=== PATIENT | male | born 1965 | race Caucasian/White ===

== ENCOUNTER 2018-08-10 01:19 | Emergency (ER) | payer BC ==
[2018-08-10] MEDS ORDERED: KETOROLAC TROMETHAMINE 60 MG/2 ML VIAL IM ONE (01:22)
[2018-08-10 01:31] VITALS: TEMP 98.2; BMI 26.6
--- NOTE | 2018-08-10 02:07 | PDOC ---
History of Present Illness - General Chief Complaint: Injury Stated Complaint: FELL INJURING LEFT RIBS ON BATHTUB Time Seen by Provider: 08/10/18 01:21 History Source: Patient Exam Limitations: No Limitations - History of Present Illness Initial Comments: 08/10/18 03:31 fall onto left side Occurred: reports: just prior to arrival Severity: reports: moderate Pain Location: reports: chest Method of Injury: Yes: fall Modifying Factors: improves with: None Loss of Consciousness: no loss of consciousness Associated Symptoms (Fall): abdominal pain, chest pain Past History - Past Medical History Allergies/Adverse Reactions: Allergies Allergy/AdvReac Type Severity Reaction Status Date / Time No Known Drug Allergies Allergy Verified 08/10/18 01:21 Home Medications: Ambulatory Orders Gabapentin 800 mg PO TID 08/23/17 Omeprazole 10 mg PO DAILY #30 capsule. 08/23/17 Naproxen 500 mg PO BID PRN #16 tablet. 08/10/18 Oxycodone HCl/Acetaminophen [Percocet 5-325 mg Tablet] 2 tab PO Q6H PRN #16 tablet MDD 8 tabs 08/10/18 Anemia: No Asthma: No Cancer: No Cardiac Disorders: No CVA: No COPD: No CHF: No Dementia: No Diabetes: No GI Disorders: No Disorders: No HTN: Yes Hypercholesterolemia: No Liver Disease: No Seizures: No Thyroid Disease: No - Surgical History Abdominal Surgery: No Appendectomy: No Cardiac Surgery: No Cholecystectomy: No Lung Surgery: No Neurologic Surgery: No Orthopedic Surgery: Yes (LUMBAR FUSION complicated by staph infection many) - Immunization History Immunization Up to Date: No - Suicide/Smoking/Psychosocial Hx Smoking Status: No Smoking History: Never smoked Have you smoked in the past 12 months: No Number of Cigarettes Smoked Daily: 0 Hx Alcohol Use: Yes Drug/Substance Use Hx: No Substance Use Type: Alcohol Hx Substance Use Treatment: No Review of Systems - Review of Systems All Other Systems: Reviewed and Negative *Physical Exam - Physical Exam General Appearance: Yes: Nourished, Appropriately Dressed HEENT: positive: Normal Voice Neck: negative: Tender Respiratory/Chest: positive: Chest Tender, Lungs Clear, Normal Breath Sounds. negative: Respiratory Distress, Decreased Breath Sounds Cardiovascular: positive: Regular Rhythm Gastrointestinal/Abdominal: negative: Tender, Distended Lymphatic: negative: Adenopathy Extremity: positive: Normal Capillary Refill Integumentary: positive: Normal Color Neurologic: positive: director erp II-XII NML intact, Fully Oriented, Motor Strength 5/5 Medical Decision Making - Medical Decision Making 08/10/18 03:33 pocus--no pneumo no splenic/ renal injury a/p rib fx versus contusion analgesia incentive spirometer *DC/Admit/Observation/Transfer Diagnosis at time of Disposition: Rib fractures Qualifiers: Encounter type: initial encounter Rib fracture type: multiple ribs Fracture type: closed Laterality: left Qualified Code(s): S22.42XA - Multiple fractures of ribs, left side, initial encounter for closed fracture - Discharge Dispostion Disposition: HOME Condition at time of disposition: Stable - Prescriptions Prescriptions: Naproxen 500 mg PO BID PRN #16 tablet. PRN Reason: Pain Oxycodone HCl/Acetaminophen [Percocet 5-325 mg Tablet] 2 tab PO Q6H PRN #16 tablet MDD 8 tabs PRN Reason: Pain - Referrals - Patient Instructions Printed Discharge Instructions: How to Use an Incentive Spirometer, DI for Rib Fracture Additional Instructions: Please purchase an "incentive spirometer" at a surgical supply store and use every 3 hours - Post Discharge Activity
[2018-08-10] MEDS ORDERED: diazePAM 5 MG TABLET PO ONE (02:23)
[2018-08-10] MEDS ORDERED: diazePAM 5 MG TABLET ONE (02:26)
[2018-08-10 02:29] VITALS: BP 122/88; PULSE 91
== END 2018-08-10 02:40 | disposition home or self-care (01) ==
LOC: FER 01:19
PROC: 3E0233Z Introduction of Anti-inflammatory into Muscle, Percutaneous Approach (ICD-10-PCS; principal; 2018-08-10)
DX: S22.42XA Multiple fractures of ribs, left side, initial encounter for closed fracture (principal); W18.39XA Other fall on same level, initial encounter; Y93.89 Activity, other specified; Y92.002 Bathroom of unspecified non-institutional (private) residence as the place of occurrence of the external cause; I10 Essential (primary) hypertension
CPT/HCPCS: 99281-25

== ENCOUNTER 2018-08-31 17:48 | Emergency (ER) | payer BC ==
--- NOTE | 2018-08-31 17:50 | PDOC ---
History of Present Illness - General Chief Complaint: Pain Stated Complaint: LEFT RIB PAIN Time Seen by Provider: 08/31/18 17:50 - History of Present Illness Initial Comments: 08/31/18 17:55 Mr. Shaffer is a 52 yo male w/ pmh of chronic low back pain, peripheral neuropathy , alcohol abuse, and GERD who presents for evaluation of L chest pain. Patient was evaluated 3/4 in this ER after fall onto bath tub and found to have possible single rib fracture at that time. Patient presents as he was rolling over this morning and felt a "pop" in his left ribs and is worried he may have injured his lungs somehow. Currently complaining of left sided rib pain. Reports he hasn't eaten today and is feeling shaky. The patient denies shortness of breath, headache and dizziness. Denies fever, chills, nausea, vomit, diarrhea and constipation. Denies dysuria, frequency, urgency and hematuria. Past History - Past Medical History Allergies/Adverse Reactions: Allergies Allergy/AdvReac Type Severity Reaction Status Date / Time No Known Drug Allergies Allergy Verified 08/31/18 17:56 Home Medications: Ambulatory Orders Gabapentin 800 mg PO TID 08/23/17 Omeprazole 10 mg PO DAILY #30 capsule. 08/23/17 Oxycodone HCl/Acetaminophen [Percocet 5-325 mg Tablet] 1 tab PO Q6H PRN #20 tablet MDD 4 tabs 08/31/18 Anemia: No Asthma: No Cancer: No Cardiac Disorders: No CVA: No COPD: No CHF: No Dementia: No Diabetes: No GI Disorders: No Disorders: No HTN: Yes Hypercholesterolemia: No Liver Disease: No Seizures: No Thyroid Disease: No - Surgical History Abdominal Surgery: No Appendectomy: No Cardiac Surgery: No Cholecystectomy: No Lung Surgery: No Neurologic Surgery: No Orthopedic Surgery: Yes (LUMBAR FUSION complicated by staph infection many) - Immunization History Immunization Up to Date: No - Suicide/Smoking/Psychosocial Hx Smoking Status: No Smoking History: Never smoked Have you smoked in the past 12 months: No Number of Cigarettes Smoked Daily: 0 Hx Alcohol Use: Yes Drug/Substance Use Hx: No Substance Use Type: Alcohol Hx Substance Use Treatment: No Review of Systems - Review of Systems Comments:: 08/31/18 18:01 GENERAL/CONSTITUTIONAL: No fever or chills. No weakness. HEAD, EYES, EARS, NOSE AND THROAT: No change in vision. No ear pain or discharge. No sore throat. CARDIOVASCULAR: No chest pain or shortness of breath RESPIRATORY: No cough, wheezing, or hemoptysis. GASTROINTESTINAL: No nausea, vomiting, diarrhea or constipation. GENITOURINARY: No dysuria, frequency, or change in urination. MUSCULOSKELETAL: +Left sided rib pain in mid-axillary line reported. SKIN: No rash NEUROLOGIC: No headache, vertigo, loss of consciousness, or change in strength/ sensation. ENDOCRINE: No increased thirst. No abnormal weight change HEMATOLOGIC/LYMPHATIC: No anemia, easy bleeding, or history of blood clots. ALLERGIC/IMMUNOLOGIC: No hives or skin allergy. *Physical Exam - Physical Exam Comments: 08/31/18 18:01 GENERAL: Awake, alert, and fully oriented, in no acute distress HEAD: No signs of trauma, normocephalic, atraumatic EYES: PERRLA, EOMI, sclera anicteric, conjunctiva clear ENT: Auricles normal inspection, hearing grossly normal, nares patent, oropharynx clear without exudates. Moist mucosa NECK: Normal ROM, supple, no lymphadenopathy, JVD, or masses LUNGS: +TTP in midaxillary line at lower ribs. No distress, speaks full sentences, clear to auscultation bilaterally HEART: Regular rate and rhythm, normal S1 and S2, no murmurs, rubs or gallops, peripheral pulses normal and equal bilaterally. ABDOMEN: Soft, nontender, normoactive bowel sounds. No guarding, no rebound. No masses EXTREMITIES: Normal inspection, Normal range of motion, no edema. No clubbing or cyanosis. NEUROLOGICAL: Cranial nerves II through XII grossly intact. Normal speech, normal gait, no focal sensorimotor deficits SKIN: Warm, Dry, normal turgor, no rashes or lesions noted. Medical Decision Making - Medical Decision Making 08/31/18 18:47 Mr. Shaffer is a 52 yo male w/ pmh as described who presents for evaluation of atraumatic rib pain. Patient noted to be very shaky, admits to being a heavy drinker and hasn't had any alcohol today. Patient evaluated with XR and found to have rib fracture coinciding with pain. Patient given percocet for pain control and discharging for further outpatient f/u for further evaluation. *DC/Admit/Observation/Transfer Diagnosis at time of Disposition: Rib fracture Qualifiers: Encounter type: initial encounter Rib fracture type: single rib Fracture type: closed Laterality: left Qualified Code(s): S22.32XA - Fracture of one rib, left side, initial encounter for closed fracture - Discharge Dispostion Disposition: HOME Condition at time of disposition: Good - Prescriptions Prescriptions: Oxycodone HCl/Acetaminophen [Percocet 5-325 mg Tablet] 1 tab PO Q6H PRN #20 tablet MDD 4 tabs PRN Reason: Severe Pain - Referrals Referrals: Dirk Linton MD [Primary Care Provider] - - Patient Instructions Printed Discharge Instructions: DI for Rib Fracture Additional Instructions: You were evaluated today in the ER and found to have a rib fracture. We proscribed you medicine for pain control - please take all medications as proscribed. Follow-up with primary care provider later this week for further evaluation. Return to ER if any fever, chills, pain not controllable with proscribed medications, or other concerning symptoms. - Post Discharge Activity
[2018-08-31 18:03] VITALS: BP 156/108; PULSE 98; TEMP 98.7; BMI 26.6
[2018-08-31] MEDS ORDERED: IBUPROFEN 400 MG TABLET (FP) PO ONE ×2 (18:19→18:20)
--- NOTE | 2018-08-31 18:24 | PDOC ---
Attending Attestation - HPI HPI: 08/31/18 18:25 The patient is a 52 year old male, with a significant past medical history of HTN, GERD, ETOH abuse, peripheral neuropathy, and spinal fusion, who presents to the emergency department with L rib pain since 9:30am. The patient reports he was turning in bed this morning when he heard a pop. The patient states his pain was a 10/10 in severity, accompanied by SOB, and described as seeing stars. The patient reports he took a couple of deep breaths at the onset of his pain, and then the pain was a 7/10. The patient states he fell on his bathtub on 08/10/18 and fractured his rib and is now experiencing the same pain. The patient notes he did not take any pain relief medications, however, he did drink some gatorade. Patient states he is feeling shaky because he has not eaten today. The patient denies chest pain, headache or dizziness. The patient denies fever, chills, nausea, vomit, diarrhea and constipation. The patient denies dysuria, frequency, urgency or hematuria. Allergies: NKDA Past surgical history: Lumbar fusion (complicated by many staph infections) Social history: no tobacco use. Social drinker. PCP: Dirk Santacruz <Herman Maddox - Last Filed: 08/31/18 18:29> - Resident Resident Name: Min Olivera - ED Attending Attestation I have performed the following: I have examined & evaluated the patient, The case was reviewed & discussed with the resident, I agree w/resident's findings & plan, Exceptions are as noted - Physicial Exam PE: GENERAL: Awake, alert, and fully oriented, in no acute distress HEAD: No signs of trauma EYES: PERRLA, EOMI, sclera anicteric, conjunctiva clear ENT: Auricles normal inspection, hearing grossly normal, nares patent, oropharynx clear without exudates. Moist mucosa NECK: Normal ROM, supple, no lymphadenopathy, JVD, or masses LUNGS: Breath sounds equal, clear to auscultation bilaterally. No wheezes, and no crackles. +L lateral rib margin tenderness. HEART: Regular rate and rhythm, normal S1 and S2, no murmurs, rubs or gallops ABDOMEN: Soft, nontender, normoactive bowel sounds. No guarding, no rebound. No masses EXTREMITIES: Normal range of motion, no edema. No clubbing or cyanosis. No cords, erythema, or tenderness NEUROLOGICAL: Cranial nerves II through XII grossly intact. Normal speech, normal gait. Motor and sensation intact SKIN: Warm, Dry, normal turgor, no rashes or lesions noted. - Medical Decision Making i-STOP Reference #: [id number]. No red flags XR obtained, +fracture. <Soheila Rowan - Last Filed: 09/14/18 21:14> Attestations - Attestations 08/31/18 18:27 Documentation prepared by Herman Maddox, acting as medical nurse for Soheila Rowan MD, <Herman Maddox - Last Filed: 08/31/18 18:29>
== END 2018-08-31 18:58 | disposition home or self-care (01) ==
LOC: SUPCPDRO 17:48 → FER 17:48
DX: S22.32XA Fracture of one rib, left side, initial encounter for closed fracture (principal); W18.39XA Other fall on same level, initial encounter; Y93.89 Activity, other specified; Y92.89 Other specified places as the place of occurrence of the external cause; I10 Essential (primary) hypertension
CPT/HCPCS: 71101-TC-LT-FY; 99282-25

== ENCOUNTER 2020-10-09 12:47 | Emergency (ER) | payer OTHER, BC ==
[2020-10-09 13:11] VITALS: BP 147/102; PULSE 96; TEMP 98.8; BMI 21.9
== END 2020-10-09 14:10 | disposition home or self-care (01) ==
LOC: FER 12:47
DX: M25.562 Pain in left knee (principal)
CPT/HCPCS: 99283-25